=== PATIENT | male | born 1945 | race Caucasian/White ===

== ENCOUNTER 2019-05-27 22:40 | Emergency (ER) | payer MEDICARE ==
[~2019-05-27] VITALS: Wt 105.5 kg
[2019-05-27] MEDS ORDERED: PROVENTIL0.09 MG/A1 IH (22:54)
[2019-05-27] MEDS ORDERED: SPIRIVA RE2.5 MCG/Ac IH (22:56)
[2019-05-27] MEDS ORDERED: MICARDIS80 MG PO (22:56)
[2019-05-27] MEDS ORDERED: LIPITOR 40MG TA40 MG PO (22:56)
[2019-05-28 00:02] LABS: RED BLOOD COUNT 4.58 M/mm3 (4.20-5.60); WHITE BLOOD COUNT 13.8 K/mm3 (4.8-10.8)
[2019-05-28 00:03] LABS: HEMATOCRIT 44.3 % (42.0-52.0); MEAN CELL VOLUME 97 fl (78-100); MEAN CORPUSCULAR HEMOGLOBIN 31 pg (27-31); MEAN CORPUSCULAR HGB CONC 32 g/dL (33-37); MEAN PLATELET VOLUME 9.8 fl (7.4-10.4); PLATELET COUNT 315 K/mm3 (130-400); RED CELL DISTRIBUTION WIDTH 13.4 % (11.5-14.5)
[2019-05-28 00:05] LABS: NEUTROPHILS 85 % (42-75)
[2019-05-28 00:06] LABS: LYMPHOCYTE 5 % (20-51); MONOCYTE 10 % (3-10)
[2019-05-28 00:13] LABS: CARBON DIOXIDE 32 mmol/L (23-31); GLUCOSE 137 mg/dL (75-110); POTASSIUM 4.7 mmol/L (3.5-5.1); SODIUM 141 mmol/L (136-145)
[2019-05-28 00:14] LABS: ALBUMIN 3.3 g/dL (3.4-4.8); ALT/SGPT 95 U/L (0-55); AST-SGOT 56 U/L (5-34); CALCIUM 9.2 mg/dL (8.3-10.5); TOTAL BILIRUBIN 0.5 mg/dL (0.2-1.2); TOTAL PROTEIN 7.4 g/dL (6.2-8.1)
[2019-05-28 00:15] LABS: ALCOHOL IN-HOUSE < 10 mg/dL (<10)
[2019-05-28 02:47] VITALS: BP 190/95
== END 2019-05-28 02:47 | disposition short-term general hospital (02) ==
LOC: EDBD 22:40 → ED 22:40
PROVIDERS: Family Medicine
DX: J96.20 Acute and chronic respiratory failure, unspecified whether with hypoxia or hypercapnia (principal); R79.89 Other specified abnormal findings of blood chemistry; I10 Essential (primary) hypertension; E78.5 Hyperlipidemia, unspecified; J44.9 Chronic obstructive pulmonary disease, unspecified
CPT/HCPCS: A4216; J0696; J1940; J2930